=== PATIENT | female | born 1950 | race Caucasian/White ===

== ENCOUNTER → 2018-12-15 | Outpatient (REF) | payer MEDICARE, OTHER ==
[2018-12-15 17:52] LABS: COMPLEMENT C3 148 MG/DL (90-180); COMPLEMENT C4 32 MG/DL (10-40); FERRITIN 38 NG/ML (8-252); IRON (FE) 60 UG/DL (50-170); PERCENT SATURATION 18.4 % (13.2-45.0); TOTAL IRON BINDING CAPACITY 326 UG/DL (250-450); TOTAL PROTEIN 7.4 GM/DL (6.4-8.2)
[2018-12-15 17:57] LABS: FOLATE > 24.0 NG/ML; VITAMIN B12 LEVEL 609 PG/ML
[2018-12-15 18:09] LABS: TOTAL PROTEIN,RANDOM URINE 68.9 MG/DL (0.0-12.0); URINE TOTAL PROTEIN 68.9 MG/DL (0-12)
[2018-12-20 09:38] LABS: ALBUMIN % 52.7 % (55.8-66.1); ALPHA-1-GLOBULIN % 4.7 % (2.9-4.9); ALPHA-1-GLOBULINS 0.35 GM/DL (0.17-0.41); ALPHA-2-GLOBULINS 1.07 GM/DL (0.42-0.99); ALPHA-2-GLOBULINS % 14.5 % (7.1-11.8); BETA-1-GLOBULINS 0.49 GM/DL (0.28-0.60); BETA-1-GLOBULINS % 6.6 % (4.7-7.2); BETA-2-GLOBULINS 0.51 GM/DL (0.19-0.55); BETA-2-GLOBULINS % 6.9 % (3.2-6.5); GAMMA GLOBULIN % 14.6 % (11.1-18.8); GAMMA GLOBULINS 1.08 GM/DL (0.65-1.58)
[2018-12-21 09:17] LABS: HEPATITIS B SURFACE ANTIBODY NEGATIVE (POSITIVE)
[2018-12-21 09:27] LABS: HEPATITIS B SURFACE ANTIGEN NEGATIVE (NEGATIVE)
[2018-12-21 09:55] LABS: HEPATITIS C VIRUS ABY INDEX 0.2 INDEX (<0.8)
[2018-12-21 09:56] LABS: HEPATITIS B CORE ANTIBODY IGM NEGATIVE (NEGATIVE)
[2018-12-21 14:52] LABS: ANCA-ATYPICAL <1:20 titer (Neg:<1:20); ANTI DS-DNA AB <1:10 titer (.); ANTINUCLEAR ANTIBODIES DIRECT Negative (Negative); CYTOPLASMIC NEUTROP AB ANCA-C <1:20 titer (Neg:<1:20); FREE KAPPA LIGHT CHAINS SERUM 75.9 mg/L (3.3-19.4); KAPPA/LAMBDA RATIO SERUM 2.45 (0.26-1.65); PERINUCLEAR AB ANCA-P <1:20 titer (Neg:<1:20)
[2018-12-22 12:48] LABS: UPEP INTERPRETATION NO M-SPIKE NOTED; URINE VOLUME RANDOM ML
== END ==
LOC: M LABDRAW1 16:41
PROVIDERS: ATTEND Internal Medicine Nephrology
DX: D64.9 Anemia, unspecified (principal); R80.9 Proteinuria, unspecified

== ENCOUNTER → 2020-11-27 | Outpatient (REF) | payer MEDICARE, OTHER | LOC: M LAB REF 13:04 | PROVIDERS: ATTEND Internal Medicine Nephrology | DX: N18.4 Chronic kidney disease, stage 4 (severe) (principal) ==

== ENCOUNTER → 2021-09-30 | Outpatient (REF) | payer MEDICARE, OTHER ==
[2021-09-30 20:31] LABS: POTASSIUM SERUM 4.6 MEQ/L (3.5-5.1)
== END ==
LOC: M LAB REF 18:09
PROVIDERS: ATTEND Nurse Practitioner Family
DX: N18.4 Chronic kidney disease, stage 4 (severe) (principal); N25.81 Secondary hyperparathyroidism of renal origin

== ENCOUNTER → 2023-08-03 | Outpatient (REF) | payer MEDICARE, OTHER ==
[2023-08-03 19:00] LABS: PERCENT SATURATION 15.7 % (13.2-45.0)
[2023-08-03 19:02] LABS: FERRITIN 12.4 NG/ML (7.3-270.7)
== END ==
LOC: M LAB REF 17:14
PROVIDERS: ATTEND Nurse Practitioner Family
DX: D50.9 Iron deficiency anemia, unspecified (principal)

== ENCOUNTER 2024-09-19 16:53 | Inpatient (IN) | payer MEDICARE, OTHER ==
[~2024-09-19] VITALS: Ht 157.5 cm; Wt 92.3 kg
[2024-09-19] MEDS ORDERED: LEVO75TA4 PO (17:08)
[2024-09-19] MEDS ORDERED: INSU100I59 (17:08)
[2024-09-19] MEDS ORDERED: PRED50TA57 (17:08)
[2024-09-19] MEDS ORDERED: LANTINJ4 SC (17:10)
[2024-09-19] MEDS ORDERED: ERGO500029 PO (17:10)
[2024-09-19] MEDS: NS (Normal Saline) 0.9% 1,000 ML IV ONE (17:37)
[2024-09-19 18:01] LABS: VENOUS BASE EXCESS -4.6 (-2.0-2.0); VENOUS HCO3 21.6 MMOL/L (23.0-27.0); VENOUS O2 SATURATION 86.9 % (60.0-80.0); VENOUS PARTIAL PRESSURE CO2 43.9 mmHg (38.0-50.0); VENOUS PARTIAL PRESSURE O2 57.9 mmHg (30.0-50.0); VENOUS PH 7.309 UNITS (7.330-7.430); VENOUS STANDARD HCO3 20.4 MMOL/L; VENOUS TOTAL CO2 22.9 MMOL/L (24.0-28.0)
[2024-09-19 18:10] LABS: ALT/SGPT 23 U/L (7.0-40); AST/SGOT 27 U/L (<34)
[2024-09-19 18:26] LABS: CALCIUM LEVEL 9.5 MG/DL (8.3-10.6); CARBON DIOXIDE LEVEL 24 MMOL/L (20-31); CHLORIDE LEVEL 104 MMOL/L (98-107); CREATININE FOR GFR 2.39 MG/DL (0.55-1.30); GLOMERULAR FILTRATION RATE 20.5 (>39); POTASSIUM SERUM 5.1 MMOL/L (3.5-5.1); SODIUM LEVEL 142 MMOL/L (136-145)
[2024-09-19 18:46] LABS: ESTIMATED AVERAGE GLUCOSE 151.0 MG/DL (60-110)
[2024-09-19] MEDS: HumuLIN R (REGULAR) INSULIN (NovoLIN R) **100 U/ML** PER UNIT IV ONE (19:02)
[2024-09-19] MEDS: ONDANSETRON 4MG 2ML VIAL IV ONE (19:12)
[2024-09-19] MEDS: D10W/0.45% SODIUM CHLORIDE 1,000 ML IV SCH (21:17)
[2024-09-19] MEDS ORDERED: HUMA100I5 SC (22:27)
[2024-09-19] MEDS ORDERED: INSU100I59 SQ (22:27)
[2024-09-19] MEDS ORDERED: MAGN400T2 PO (22:30)
[2024-09-19] MEDS ORDERED: EFFE75CA2 PO (22:30)
[2024-09-19] MEDS ORDERED: RENATAB5 PO (22:30)
[2024-09-19] MEDS ORDERED: ROSU40TA81 PO (22:31)
[2024-09-19] MEDS ORDERED: CALC1CAP31 PO (22:32)
[2024-09-19] MEDS ORDERED: HOME MED LIST COMPLETE! XX SCH (22:40)
[2024-09-20] MEDS ORDERED: MOM 30 ML SUSPENSION UDC PO PRN (04:15)
[2024-09-20] MEDS ORDERED: ACETAMINOPHEN 325 MG TAB PO PRN (04:15)
[2024-09-20] MEDS ORDERED: DEXTROSE 50% 50 ML SYRINGE IV PRN (04:15)
[2024-09-20] MEDS ORDERED: GLUCOSE 4 GM CHEW PO PRN (04:15)
[2024-09-20] MEDS ORDERED: MAALOX 30 ML SUSP *UDC PO PRN (04:15)
[2024-09-20] MEDS ORDERED: GLUCAGON INJ 1 MG VIAL SC PRN (04:15)
[2024-09-20] MEDS: SODIUM CHLORIDE 0.9% 1000 ML IV ONE (05:11)
[2024-09-20 06:00] LABS: PLATELET COUNT, AUTOMATED 199 10^3/uL (150-450)
[2024-09-20 06:01] LABS: BASO # 0.0 10^3/uL (0.0-0.2); BASO % 0.2 % (0.0-1.0); EOS # 0.1 10^3/uL (0.0-0.5); EOS % 1.3 % (0.0-3.0); LYMPH # 2.6 10^3/uL (1.5-5.0); LYMPH % 25.0 % (24.0-44.0); MONO # 1.1 10^3/uL (0.0-0.8); MONO % 10.5 % (2.0-8.0); NEUTROPHILS # 6.5 10^3/uL (1.5-8.5); NEUTROPHILS % 62.7 % (36.0-66.0); PLATELET COUNT, AUTOMATED 212 10^3/uL (150-450)
[2024-09-20 06:12] LABS: INR 1.02
[2024-09-20 06:37] LABS: ACETONE/KETONE 0.18 MMOL/L (0.02-0.27)
[2024-09-20 07:36] LABS: ALT/SGPT 19.0 U/L (7.0-40); AST/SGOT 27.0 U/L (<34); CALCIUM LEVEL 9.6 MG/DL (8.3-10.6); CARBON DIOXIDE LEVEL 24.0 MMOL/L (20-31); CHLORIDE LEVEL 108.0 MMOL/L (98-107); CREATININE FOR GFR 2.41 MG/DL (0.55-1.30); GLOMERULAR FILTRATION RATE 20.3 (>39); MAGNESIUM LEVEL 1.9 MG/DL (1.8-2.4); PHOSPHORUS LEVEL 3.9 MG/DL (2.4-5.1); POTASSIUM SERUM 4.9 MMOL/L (3.5-5.1); SODIUM LEVEL 147.0 MMOL/L (136-145)
[2024-09-20] MEDS: LEVOTHYROXINE 75 MCG TABLET (0.075 MG) PO SCH (07:44)
[2024-09-20] MEDS: DOCUSATE SODIUM 100 MG CAPSULE PO SCH (08:42)
[2024-09-20] MEDS: INSULIN LISPRO (NovoLOG) PER UNIT SC SCH ×4 (08:42→21:17)
[2024-09-20] MEDS: MAGNESIUM OXIDE 400 MG TAB PO SCH (08:42)
[2024-09-20] MEDS: VENLAFAXINE **XR** 75MG CAPSULE PO SCH (08:42)
[2024-09-20] MEDS: HEPARIN SOD 5000 UNITS/ML 1 ML VIAL/SYRINGE SC SCH (08:43)
[2024-09-20] MEDS ORDERED: ONDANSETRON 4MG 2ML VIAL IV PRN (10:40)
[2024-09-20] MEDS ORDERED: D5W 1,000 ML IV SCH (10:45)
[2024-09-20] MEDS ORDERED: amLODIPine 5 MG TAB PO SCH (10:50)
[2024-09-20] MEDS: PANTOPRAZOLE 40MG VIAL IV SCH (12:33)
[2024-09-20] MEDS: amLODIPine 10 MG TAB PO SCH (12:34)
[2024-09-20] MEDS: SUCRALFATE SUSP 1GM/10ML UD PO SCH (12:34)
[2024-09-20 13:05] VITALS: BP 146/66; TEMP 97.7; O2SAT 96
[2024-09-20 16:12] VITALS: BP 146/66; TEMP 97.2; O2SAT 94
[2024-09-20 16:21] LABS: KETONE, URINE AUTO RFX NEGATIVE (NEGATIVE); LEUKOCYTE ESTERASE UR AUTO RFX NEGATIVE (NEGATIVE); MUCUS, URINE RFX SMALL (NEGATIVE); NITRITE, URINE AUTO RFX NEGATIVE (NEGATIVE); RBC, URINE AUTO RFX 0 /HPF (0-3); SQUAM EPITHELIAL CELL UR AURFX 1 /HPF (0-6); WBC, URINE AUTO RFX 2 /HPF (0-3)
[2024-09-20 20:00] VITALS: BP 148/67; TEMP 97.9; O2SAT 93
[2024-09-20] MEDS ORDERED: INSULIN LISPRO (NovoLOG) PER UNIT SC SCH (21:00)
[2024-09-20] MEDS: ROSUVASTATIN 10 MG TAB PO SCH (21:18)
[2024-09-20] MEDS: METOPROLOL SUCC. 50 MG *XL* TAB PO SCH (21:21)
[2024-09-20 22:00] VITALS: O2SAT 80
[2024-09-20 22:02] VITALS: O2SAT 95
[2024-09-20 22:07] VITALS: O2SAT 97
[2024-09-21] VITALS (8 sets, daily range): BP systolic 111–139; BP diastolic 43–60; TEMP 97.3–97.5; O2SAT 92–98
[2024-09-21 06:51] LABS: PLATELET COUNT, AUTOMATED 194 10^3/uL (150-450)
[2024-09-21 07:25] LABS: ALT/SGPT 19.0 U/L (7.0-40); AST/SGOT 27.0 U/L (<34); CALCIUM LEVEL 9.0 MG/DL (8.3-10.6); CARBON DIOXIDE LEVEL 26.0 MMOL/L (20-31); CHLORIDE LEVEL 108.0 MMOL/L (98-107); CREATININE FOR GFR 2.45 MG/DL (0.55-1.30); GLOMERULAR FILTRATION RATE 19.9 (>39); MAGNESIUM LEVEL 1.9 MG/DL (1.8-2.4); POTASSIUM SERUM 5.2 MMOL/L (3.5-5.1); SODIUM LEVEL 143.0 MMOL/L (136-145)
[2024-09-21] MEDS: PATIROMER SORBITEX CALCIUM 8.4GM POWDER PACKET PO ONE (12:57)
[2024-09-21] MEDS: METOPROLOL SUCC. 25 MG *XL* TAB PO SCH (20:30)
[2024-09-21] MEDS: LanTUS (INSULIN GLARGINE INJ) 1 UNITS/0.01 ML SC SCH (21:31)
[2024-09-22] VITALS: BP 137/49; TEMP 97; O2SAT 99
[2024-09-22 04:00] VITALS: BP 119/51; TEMP 97.5; O2SAT 97
[2024-09-22 05:51] LABS: CALCIUM LEVEL 9.0 MG/DL (8.3-10.6); CARBON DIOXIDE LEVEL 25.0 MMOL/L (20-31); CHLORIDE LEVEL 105.0 MMOL/L (98-107); CREATININE FOR GFR 2.4 MG/DL (0.55-1.30); GLOMERULAR FILTRATION RATE 20.4 (>39); POTASSIUM SERUM 4.9 MMOL/L (3.5-5.1); SODIUM LEVEL 142.0 MMOL/L (136-145)
[2024-09-22 08:00] VITALS: BP 143/61; TEMP 97.5; O2SAT 95
[2024-09-22 08:24] VITALS: BP 143/61
[2024-09-22 12:00] VITALS: BP 139/61; TEMP 97.5; O2SAT 96
[2024-09-22] MEDS: LanTUS (INSULIN GLARGINE INJ) 1 UNITS/0.01 ML SC ONE (12:17)
[2024-09-22] MEDS ORDERED: PROT1TAB2 PO (14:01)
[2024-09-22] MEDS ORDERED: CARA1TAB6 PO (14:01)
[2024-09-22] MEDS ORDERED: INSU100I59 SQ (14:01)
[2024-09-22] MEDS ORDERED: AMLO1TAB25 PO (14:01)
[2024-09-22] MEDS ORDERED: METO1TAB32 PO (14:01)
[2024-09-22] MEDS ORDERED: JANU25TA PO (14:11)
[2024-09-22] MEDS ORDERED: HUMA100I5 SC (14:26)
== END 2024-09-22 15:38 | disposition home or self-care (01) | DRG 638 ==
LOC: M ED 16:53 → M ED INP 09-20 04:12 → M MSPAV 09-20 12:54
PROVIDERS: ADMIT Family Medicine; ATTEND Internal Medicine
DX: E11.65 Type 2 diabetes mellitus with hyperglycemia (principal); N17.9 Acute kidney failure, unspecified; E87.0 Hyperosmolality and hypernatremia; E03.9 Hypothyroidism, unspecified; E78.5 Hyperlipidemia, unspecified; I12.9 Hypertensive chronic kidney disease with stage 1 through stage 4 chronic kidney disease, or unspecified chronic kidney disease; Z66 Do not resuscitate; E11.649 Type 2 diabetes mellitus with hypoglycemia without coma; E87.5 Hyperkalemia; F32.A Depression, unspecified; E11.22 Type 2 diabetes mellitus with diabetic chronic kidney disease; N18.9 Chronic kidney disease, unspecified; K80.20 Calculus of gallbladder without cholecystitis without obstruction; I16.0 Hypertensive urgency; I25.10 Atherosclerotic heart disease of native coronary artery without angina pectoris; G47.33 Obstructive sleep apnea (adult) (pediatric); Z90.49 Acquired absence of other specified parts of digestive tract; Z90.79 Acquired absence of other genital organ(s); Z79.4 Long term (current) use of insulin; Z79.890 Hormone replacement therapy; Z79.899 Other long term (current) drug therapy

== ENCOUNTER 2025-02-08 16:14 | Inpatient (IN) | payer MEDICARE, OTHER ==
[~2025-02-08] VITALS: Ht 157.5 cm; Wt 88.6 kg
[~2025-02-08 16:14] MED LIST: AMLO1TAB25 PO; CALC1CAP31 PO; CARA1TAB6 PO; EFFE75CA2 PO; ERGO500029 PO; HUMA100I5 SC; INSU100I59; INSU100I59 SQ; JANU25TA PO; LANTINJ4 SC; LEVO75TA4 PO; MAGN400T2 PO; METO1TAB32 PO; PRED50TA57; PROT1TAB2 PO; RENATAB5 PO; ROSU40TA81 PO
[2025-02-08] MEDS: NS 250 ML IV ONE (17:29)
[2025-02-08 17:37] LABS: BASO # 0.0 10^3/uL (0.0-0.2); BASO % 0.2 % (0.0-1.0); EOS # 0.2 10^3/uL (0.0-0.5); EOS % 2.4 % (0.0-3.0); LYMPH # 1.7 10^3/uL (1.5-5.0); LYMPH % 17.1 % (24.0-44.0); MONO # 1.0 10^3/uL (0.0-0.8); MONO % 10.6 % (2.0-8.0); NEUTROPHILS # 6.7 10^3/uL (1.5-8.5); NEUTROPHILS % 69.1 % (36.0-66.0); PLATELET COUNT, AUTOMATED 253 10^3/uL (150-450)
[2025-02-08 18:07] LABS: ALT/SGPT 26 U/L (7.0-40); AST/SGOT 30 U/L (<34); CALCIUM LEVEL 9.8 MG/DL (8.3-10.6); CARBON DIOXIDE LEVEL 25 MMOL/L (20-31); CHLORIDE LEVEL 106 MMOL/L (98-107); CPK CREATINE PHOSPHOKINASE 37 U/L (34-145); CREATININE FOR GFR 2.61 MG/DL (0.55-1.30); GLOMERULAR FILTRATION RATE 18.5 (>39); MAGNESIUM LEVEL 2.2 MG/DL (1.8-2.4); POTASSIUM SERUM 6.0 MMOL/L (3.5-5.1); SODIUM LEVEL 140 MMOL/L (136-145)
[2025-02-08] MEDS: NS 500 ML IV ONE (18:16)
[2025-02-08 18:37] LABS: CK-MB VALUE MASS 1.0 NG/ML (<3.6); MB/CK RELATIVE INDEX 2.70 (< OR =4)
[2025-02-08 18:41] LABS: FREE T4 1.01 NG/DL (0.89-1.76)
[2025-02-08 18:43] LABS: CK-MB VALUE MASS < 1.0 NG/ML (<3.6)
[2025-02-08 18:50] LABS: CPK CREATINE PHOSPHOKINASE 33 U/L (34-145)
[2025-02-08] MEDS: ALBUTEROL SULFATE 2.5 MG/0.5 ML INH CONCENTRATE NEB SOLN INH ONE (19:08)
[2025-02-08] MEDS: PATIROMER SORBITEX CALCIUM 8.4GM POWDER PACKET PO ONE (19:09)
[2025-02-08] MEDS: SODIUM BICARBONATE 8.4% INJ 50ML SYRINGE IV ONE (19:09)
[2025-02-08] MEDS: DEXTROSE 50% 50 ML SYRINGE IV ONE (19:09)
[2025-02-08] MEDS: HumuLIN R (REGULAR) INSULIN (NovoLIN R) **100 U/ML** PER UNIT IV ONE (19:10)
[2025-02-08] MEDS ORDERED: FAMO1TAB11 PO (19:22)
[2025-02-08] MEDS ORDERED: INSU100I59 SQ (19:25)
[2025-02-08] MEDS ORDERED: HUMA100I5 SC (19:25)
[2025-02-08] MEDS ORDERED: HOME MED LIST COMPLETE! XX SCH (19:30)
[2025-02-08] MEDS ORDERED: MIDODRINE 5 MG TAB PO PRN (19:45)
[2025-02-08] MEDS: NS (Normal Saline) 0.9% 1,000 ML IV SCH (20:00)
[2025-02-08] MEDS ORDERED: GLUCOSE 4 GM CHEW PO PRN (20:05)
[2025-02-08] MEDS ORDERED: GLUCAGON INJ 1 MG VIAL SC PRN (20:05)
[2025-02-08] MEDS ORDERED: DEXTROSE 50% 50 ML SYRINGE IV PRN (20:05)
[2025-02-08] MEDS: INSULIN LISPRO (NovoLOG) PER UNIT SC SCH (20:55)
[2025-02-08 23:48] LABS: CALCIUM LEVEL 9.3 MG/DL (8.3-10.6); CARBON DIOXIDE LEVEL 25.0 MMOL/L (20-31); CHLORIDE LEVEL 107.0 MMOL/L (98-107); CREATININE FOR GFR 2.35 MG/DL (0.55-1.30); GLOMERULAR FILTRATION RATE 20.9 (>39); POTASSIUM SERUM 4.7 MMOL/L (3.5-5.1); SODIUM LEVEL 142.0 MMOL/L (136-145)
[2025-02-09] MEDS: ACETAMINOPHEN 325 MG TAB PO PRN (02:39)
[2025-02-09] MEDS: LEVOTHYROXINE 75 MCG TABLET (0.075 MG) PO SCH (05:02)
[2025-02-09] MEDS: HEPARIN SOD 5000 UNITS/ML 1 ML VIAL/SYRINGE SC SCH (05:03)
[2025-02-09 07:29] LABS: PLATELET COUNT, AUTOMATED 212 10^3/uL (150-450)
[2025-02-09 08:03] LABS: CALCIUM LEVEL 9.0 MG/DL (8.3-10.6); CARBON DIOXIDE LEVEL 24.0 MMOL/L (20-31); CHLORIDE LEVEL 109.0 MMOL/L (98-107); CREATININE FOR GFR 2.32 MG/DL (0.55-1.30); GLOMERULAR FILTRATION RATE 21.3 (>39); MAGNESIUM LEVEL 1.8 MG/DL (1.8-2.4); POTASSIUM SERUM 5.0 MMOL/L (3.5-5.1); SODIUM LEVEL 144.0 MMOL/L (136-145)
[2025-02-09] MEDS: INSULIN LISPRO (NovoLOG) PER UNIT SC SCH (08:09)
[2025-02-09] MEDS: VENLAFAXINE **XR** 75MG CAPSULE PO SCH (08:09)
[2025-02-09] MEDS: MAGNESIUM OXIDE 400 MG TAB PO SCH (08:09)
[2025-02-09] MEDS: CALCITRIOL 0.25 MCG CAP (S0169) PO SCH (10:50)
[2025-02-09] MEDS: FAMOTIDINE 20 MG TAB PO PRN (10:51)
[2025-02-09 13:13] VITALS: BP 138/63; TEMP 98.1; O2SAT 100
[2025-02-09 14:49] VITALS: BP 170/74; TEMP 97.9; O2SAT 96
[2025-02-09 15:00] VITALS: BP 160/74
[2025-02-09 19:41] VITALS: BP 187/80; TEMP 98.1; O2SAT 97
[2025-02-09 21:56] VITALS: BP 170/73; TEMP 98.4; O2SAT 97
[2025-02-10 04:12] VITALS: BP 166/72; TEMP 98.5; O2SAT 94
[2025-02-10 06:54] LABS: PLATELET COUNT, AUTOMATED 216 10^3/uL (150-450)
[2025-02-10 07:18] LABS: CALCIUM LEVEL 9.1 MG/DL (8.3-10.6); CARBON DIOXIDE LEVEL 24.0 MMOL/L (20-31); CHLORIDE LEVEL 107.0 MMOL/L (98-107); CREATININE FOR GFR 1.96 MG/DL (0.55-1.30); GLOMERULAR FILTRATION RATE 26.0 (>39); POTASSIUM SERUM 4.7 MMOL/L (3.5-5.1); SODIUM LEVEL 142.0 MMOL/L (136-145)
[2025-02-10] MEDS: LanTUS (INSULIN GLARGINE INJ) 1 UNITS/0.01 ML SC SCH (08:21)
[2025-02-10 08:33] VITALS: BP 122/68
[2025-02-10] MEDS ORDERED: AMLO2.5T3 PO (10:13)
== END 2025-02-10 12:00 | disposition home or self-care (01) | DRG 312 ==
LOC: M ED 16:14 → M ED INP 16:15 → OBSVTOIN 02-09 11:34 → M MS5PR 02-09 12:36
PROVIDERS: ADMIT Internal Medicine; ATTEND Internal Medicine Nephrology
DX: I95.1 Orthostatic hypotension (principal); N18.4 Chronic kidney disease, stage 4 (severe); E78.5 Hyperlipidemia, unspecified; I12.9 Hypertensive chronic kidney disease with stage 1 through stage 4 chronic kidney disease, or unspecified chronic kidney disease; E11.649 Type 2 diabetes mellitus with hypoglycemia without coma; E87.5 Hyperkalemia; E03.9 Hypothyroidism, unspecified; E11.22 Type 2 diabetes mellitus with diabetic chronic kidney disease; E55.9 Vitamin D deficiency, unspecified; Z87.891 Personal history of nicotine dependence; Z79.899 Other long term (current) drug therapy; Z79.4 Long term (current) use of insulin; Z79.890 Hormone replacement therapy; Z66 Do not resuscitate